=== PATIENT | male | born 1995 | race Asian ===

== ENCOUNTER 2019-07-10 22:26 | Emergency (ER) | payer BC, MEDICARE ==
[~2019-07-10] VITALS: Ht 177.8 cm; Wt 104.5 kg
[2019-07-10] MEDS ORDERED: ALBU8.5H8 IH (22:44)
[2019-07-11] MEDS ORDERED: PERTUSS(ACELL),DIPH,TET VAC/PF 0.5 ML VIAL IM ONE (02:45)
[2019-07-11] MEDS ORDERED: RABIES VAC,PF CHICK-EMB CELL 2.5 UNITS/ML SYRINGE IM ONE (03:00)
[2019-07-11] MEDS ORDERED: AMOX TR/POT CLAV 875 MG/125 MG TABLET PO ONE (03:00)
[2019-07-11] MEDS ORDERED: RABIES IMMUNE GLOBULIN/PF 300 UNITS/ML 5 ML VIAL IM ONE (03:00)
[2019-07-11 03:49] VITALS: BP 128/78
== END 2019-07-11 03:51 | disposition home or self-care (01) ==
LOC: EMS 22:26
DX: S81.851A Open bite, right lower leg, initial encounter (principal); J45.909 Unspecified asthma, uncomplicated; F17.200 Nicotine dependence, unspecified, uncomplicated; Z79.899 Other long term (current) drug therapy; W54.0XXA Bitten by dog, initial encounter; Y93.89 Activity, other specified; Y92.89 Other specified places as the place of occurrence of the external cause; Y99.8 Other external cause status
CPT/HCPCS: 90375; 90471; 90472; 90675; 90715; 96372

== ENCOUNTER 2019-07-14 15:52 | Emergency (ER) | payer BC ==
[~2019-07-14] VITALS: Ht 177.8 cm; Wt 104.5 kg
[~2019-07-14 15:52] MED LIST: ALBU8.5H8 IH
[2019-07-14] MEDS ORDERED: RABIES VAC,PF CHICK-EMB CELL 2.5 UNITS/ML SYRINGE IM ONE (16:30)
[2019-07-14 17:33] VITALS: BP 124/80
== END 2019-07-14 17:34 | disposition home or self-care (01) ==
LOC: EMS 15:53
DX: S81.831D Puncture wound without foreign body, right lower leg, subsequent encounter (principal); J45.909 Unspecified asthma, uncomplicated; Z79.899 Other long term (current) drug therapy; W54.0XXD Bitten by dog, subsequent encounter
CPT/HCPCS: 90471; 90675

== ENCOUNTER 2019-07-18 12:55 | Emergency (ER) | payer BC ==
[~2019-07-18] VITALS: Ht 172.7 cm; Wt 90.9 kg
[2019-07-18] MEDS ORDERED: RABIES VAC,PF CHICK-EMB CELL 2.5 UNITS/ML SYRINGE IM ONE (14:00)
[2019-07-18 14:35] VITALS: BP 121/76
== END 2019-07-18 14:53 | disposition home or self-care (01) ==
LOC: EMS 12:55
DX: S81.851D Open bite, right lower leg, subsequent encounter (principal); J45.909 Unspecified asthma, uncomplicated; Z79.899 Other long term (current) drug therapy; Z23 Encounter for immunization; W54.0XXD Bitten by dog, subsequent encounter
CPT/HCPCS: 90471; 90675

== ENCOUNTER 2019-07-25 11:15 | Emergency (ER) | payer BC ==
[~2019-07-25] VITALS: Ht 180.3 cm; Wt 109.1 kg
[2019-07-25 11:26] VITALS: BP 139/82
[2019-07-25] MEDS ORDERED: RABIES VAC,PF CHICK-EMB CELL 2.5 UNITS/ML SYRINGE IM ONE (11:30)
== END 2019-07-25 11:54 | disposition home or self-care (01) ==
LOC: EMS 11:17
DX: Z23 Encounter for immunization (principal); J45.909 Unspecified asthma, uncomplicated; F17.200 Nicotine dependence, unspecified, uncomplicated
CPT/HCPCS: 90471; 90675